=== PATIENT | female | born 1950 | race Two or more races ===

== ENCOUNTER 2017-08-18 17:08 | Emergency (ER) | payer MEDICARE, MEDICAID ==
[~2017-08-18] VITALS: Ht 162.6 cm; Wt 60.0 kg
[2017-08-18] MEDS ORDERED: IBUPROFEN 800MG TABLET PO ONE (23:00)
[2017-08-19 00:45] VITALS: BP 150/78
== END 2017-08-19 00:46 | disposition home or self-care (01) ==
LOC: ER 17:14
DX: S16.1XXA Strain of muscle, fascia and tendon at neck level, initial encounter (principal); R51 Headache; V78.1XXA Passenger on bus injured in noncollision transport accident in nontraffic accident, initial encounter; Y93.89 Activity, other specified; Y92.410 Unspecified street and highway as the place of occurrence of the external cause
CPT/HCPCS: 72040; 99284

== ENCOUNTER 2017-12-12 11:38 | Inpatient (IN) | payer MEDICARE, MEDICAID ==
[~2017-12-12] VITALS: Ht 162.6 cm; Wt 63.5 kg
[2017-12-12] MEDS ORDERED: MORPHINE SULFATE 4 MG/ML CPJ (NOT FOR IM USE) IV STA (12:28)
[2017-12-12] MEDS ORDERED: ONDANSETRON HCL 4MG/2ML INJ IV STA (12:28)
[2017-12-12] MEDS ORDERED: SODIUM CHLORIDE 0.9% 1,000 ML IV ONE (12:28)
[2017-12-12 13:28] LABS: BASOPHILS % 0.5 % (0.0-2.0); EOSINOPHILS % 0.5 % (0.0-5.0); HEMATOCRIT. 41.5 % (36.0-48.0); HEMOGLOBIN. 13.7 g/dL (12.0-16.0); LYMPHOCYTES % 9.5 % (20.0-50.0); MEAN CORPUSCULAR HEMOGLOBIN 26.9 pg (28.0-32.0); MEAN CORPUSCULAR VOLUME 81.3 fL (81.0-99.0); MEAN PLATELET VOLUME 8.6 fl (7.4-10.4); MONOCYTES % 4.2 % (2.0-8.0); NEUTROPHILS % 85.3 % (40.0-76.0); PLATELET 267 x1000/uL (130-400); RED BLOOD CELL COUNT 5.11 mill/uL (4.2-5.4); RED CELL DISTRIBUTION WIDTH 13.6 % (11.6-14.6)
[2017-12-12 13:30] LABS: CHLORIDE 101 mEq/L (98-107)
[2017-12-12] MEDS ORDERED: ASPIRIN 81MG TABLET PO ONE (15:15)
[2017-12-12 17:00] VITALS: BP 144/66
[2017-12-12 17:15] VITALS: BP 144/66
[2017-12-12] MEDS ORDERED: IPRATROPIUM/ALBUTEROL 0.5-3(2.5)MG/3ML NEB INH PRN (17:45)
[2017-12-12] MEDS ORDERED: ONDANSETRON HCL 4MG/2ML INJ IV PRN (17:45)
[2017-12-12] MEDS ORDERED: MORPHINE SULFATE 4 MG/ML CPJ (NOT FOR IM USE) IV PRN (17:45)
[2017-12-12] MEDS ORDERED: LORAZEPAM 0.5MG TABLET PO PRN (17:45)
[2017-12-12] MEDS ORDERED: DOCUSATE SODIUM 100MG CAPSULE PO PRN (17:45)
[2017-12-12] MEDS ORDERED: HYDROCODONE/ACETAMINOPHEN 5/325MG TABLET PO PRN (17:45)
[2017-12-12] MEDS ORDERED: CLONIDINE 0.1MG TABLET PO PRN (17:45)
[2017-12-12] MEDS ORDERED: ACETAMINOPHEN 325MG TABLET PO PRN (17:45)
[2017-12-12 19:06] LABS: PHOSPHORUS 3.5 mg/dL (2.5-4.9)
[2017-12-12 19:11] LABS: CREATINE KINASE MB FRACTION 3.8 ng/mL (0.5-3.6)
[2017-12-12 20:00] VITALS: BP 112/49
[2017-12-12] MEDS: PANTOPRAZOLE SODIUM 40 MG/VIAL IV SCH (21:30)
[2017-12-12] MEDS: DEXT 5%/0.45% NACL 1000ML 1,000 ML IV SCH (21:31)
[2017-12-12] MEDS: AMLODIPINE 5MG TABLET PO SCH (22:02)
[2017-12-13] VITALS: BP 116/46
[2017-12-13 04:00] VITALS: BP 108/59
[2017-12-13 06:29] LABS: BASOPHILS % 0.6 % (0.0-2.0); EOSINOPHILS % 2.3 % (0.0-5.0); HEMATOCRIT. 35.7 % (36.0-48.0); LYMPHOCYTES % 31.7 % (20.0-50.0); MEAN CORPUSCULAR HEMOGLOBIN 27.3 pg (28.0-32.0); MEAN CORPUSCULAR VOLUME 81.1 fL (81.0-99.0); MEAN PLATELET VOLUME 8.5 fl (7.4-10.4); MONOCYTES % 7.8 % (2.0-8.0); NEUTROPHILS % 57.6 % (40.0-76.0); PLATELET 234 x1000/uL (130-400); RED CELL DISTRIBUTION WIDTH 13.7 % (11.6-14.6)
[2017-12-13 06:49] LABS: CHLORIDE 105 mEq/L (98-107)
[2017-12-13] MEDS: DEXT 5%/0.45% NACL 1000ML 1,000 ML IV SCH (06:59)
[2017-12-13 07:11] LABS: CREATINE KINASE 129 IU/L (26-192)
[2017-12-13 08:00] VITALS: BP 102/51
[2017-12-13] MEDS: AMLODIPINE 5MG TABLET PO SCH (08:49)
[2017-12-13] MEDS ORDERED: ASPIRIN 81MG EC TABLET PO SCH (09:00)
[2017-12-13] MEDS: PANTOPRAZOLE SODIUM 40 MG/VIAL IV SCH (09:24)
[2017-12-13] MEDS ORDERED: ENOXAPARIN 40MG/0.4ML SYR SUBCUT SCH (11:00)
[2017-12-13 12:00] VITALS: BP 112/60
[2017-12-13 14:33] VITALS: BP 112/60
[2017-12-13] MEDS ORDERED: ATORVASTATIN CALCIUM 20MG TABLET PO SCH (21:00)
== END 2017-12-13 15:38 | disposition home or self-care (01) | DRG 206 ==
LOC: ER 11:38 → 7WST 15:16 → ENRESERV 16:02
PROVIDERS: ADMIT Internal Medicine; ATTEND Internal Medicine
DX: M94.0 Chondrocostal junction syndrome [Tietze] (principal); A08.4 Viral intestinal infection, unspecified; R10.13 Epigastric pain; I10 Essential (primary) hypertension; K21.9 Gastro-esophageal reflux disease without esophagitis; R35.0 Frequency of micturition; Z79.899 Other long term (current) drug therapy
CPT/HCPCS: 36415; 71045; 80048; 80053; 80061; 82550; 82553; 83036; 83690; 83735; 83880; 84100; 84443; 84484; 85025; 85610; 93005; 93306; 93970; 96361; 96374; 96375; 97161; 99285; C9113; J1650; J2270; J2405; J3490; J7030

== ENCOUNTER 2019-05-18 00:02 | Inpatient (IN) | payer OTHER, MEDICAID ==
[~2019-05-18] VITALS: Ht 162.6 cm; Wt 72.6 kg
[2019-05-18] MEDS ORDERED: ASPIRIN 81MG TABLET PO ONE (02:45)
[2019-05-18] MEDS ORDERED: NITROGLYCERIN OINT 1GM/INCH UDPKT TD ONE (02:45)
[2019-05-18 03:25] LABS: BASOPHILS % 0.9 % (0.0-2.0); EOSINOPHILS % 1.4 % (0.0-5.0); HEMATOCRIT. 38.9 % (36.0-48.0); HEMOGLOBIN. 13.1 g/dL (12.0-16.0); LYMPHOCYTES % 28.7 % (20.0-50.0); MEAN CORPUSCULAR HEMOGLOBIN 27.5 pg (28.0-32.0); MEAN CORPUSCULAR VOLUME 81.8 fL (81.0-99.0); MEAN PLATELET VOLUME 8.5 fl (7.4-10.4); MONOCYTES % 6.7 % (2.0-8.0); NEUTROPHILS % 62.3 % (40.0-76.0); PLATELET 247 x1000/uL (130-400); RED BLOOD CELL COUNT 4.76 mill/uL (4.2-5.4); RED CELL DISTRIBUTION WIDTH 13.7 % (11.6-14.6)
[2019-05-18 03:27] LABS: CHLORIDE 108 mEq/L (98-107)
[2019-05-18 08:25] VITALS: BP 141/75
[2019-05-18] MEDS ORDERED: ACETAMINOPHEN 325MG TABLET PO PRN (09:45)
[2019-05-18] MEDS ORDERED: IPRATROPIUM/ALBUTEROL 0.5-3(2.5)MG/3ML NEB HHN PRN (09:45)
[2019-05-18] MEDS: ENOXAPARIN 40MG/0.4ML SYR SUBCUT SCH (11:44)
[2019-05-18 12:00] VITALS: BP 104/55
[2019-05-18] MEDS: HYDROCODONE/ACETAMINOPHEN 5/325MG TABLET PO PRN ×2 (12:54→21:28)
[2019-05-18 16:00] VITALS: BP 104/55
[2019-05-18] MEDS: ASPIRIN 81MG EC TABLET PO SCH (19:14)
[2019-05-18 20:00] VITALS: BP 135/74
[2019-05-19] VITALS: BP 128/73
[2019-05-19 01:38] LABS: CLARITY URINE CLEAR (CLEAR); COLOR URINE YELLOW (YELLOW); KETONES URINE NEGATIVE (NEGATIVE); LEUKOCYTE ESTERASE URINE NEGATIVE (NEGATIVE); NITRITE URINE NEGATIVE (NEGATIVE); OCCULT BLOOD URINE NEGATIVE (NEGATIVE); PH URINE 5.5 (4.5-8.0); PROTEIN URINE NEGATIVE (NEGATIVE); SPECIFIC GRAVITY URINE 1.015 (1.005-1.030); UROBILINOGEN URINE 0.2 E.U./dL (0.2-1.0)
[2019-05-19 04:00] VITALS: BP 132/71
[2019-05-19 08:05] LABS: CHLORIDE 107 mEq/L (98-107)
[2019-05-19 08:12] LABS: BASOPHILS % 0.5 % (0.0-2.0); EOSINOPHILS % 3.1 % (0.0-5.0); HEMOGLOBIN. 12.6 g/dL (12.0-16.0); LYMPHOCYTES % 42.1 % (20.0-50.0); MEAN CORPUSCULAR HEMOGLOBIN 27.3 pg (28.0-32.0); MEAN CORPUSCULAR VOLUME 81.9 fL (81.0-99.0); MEAN PLATELET VOLUME 8.9 fl (7.4-10.4); MONOCYTES % 7.8 % (2.0-8.0); NEUTROPHILS % 46.5 % (40.0-76.0); PLATELET 244 x1000/uL (130-400); RED BLOOD CELL COUNT 4.63 mill/uL (4.2-5.4); RED CELL DISTRIBUTION WIDTH 13.9 % (11.6-14.6)
[2019-05-19] MEDS: ASPIRIN 81MG EC TABLET PO SCH (09:21)
[2019-05-19] MEDS: ENOXAPARIN 40MG/0.4ML SYR SUBCUT SCH (09:22)
[2019-05-19] MEDS ORDERED: REGADENOSON 0.4 MG/5 ML IV NR (11:45)
[2019-05-19 12:00] VITALS: BP 99/50
[2019-05-19] MEDS ORDERED: DIPHENHYDRAMINE 50MG/ML VIAL IV PRN (15:00)
[2019-05-19] MEDS ORDERED: ONDANSETRON HCL 4MG/2ML INJ IV PRN (15:00)
[2019-05-19] MEDS ORDERED: LORAZEPAM 2MG/ML CPJ IV PRN (15:00)
[2019-05-19] MEDS ORDERED: HYDRALAZINE 20MG/ML VIAL IV PRN (15:00)
[2019-05-19] MEDS ORDERED: REGADENOSON 0.4 MG/5 ML IV ONE (15:17)
[2019-05-19 17:00] VITALS: BP 137/81
[2019-05-19 20:00] VITALS: BP 115/67
[2019-05-19] MEDS ORDERED: FAMOTIDINE 20MG TABLET PO SCH (21:00)
[2019-05-19 21:14] LABS: D-DIMER 0.39 mg/L FEU (<0.50); PROTHROMBIN TIME 10.7 sec (9.6-11.0)
[2019-05-20] VITALS: BP 160/80
[2019-05-20] MEDS ORDERED: DEXT 5%/0.45% NACL 1000ML 1,000 ML IV SCH
[2019-05-20 04:00] VITALS: BP 131/65
[2019-05-20 05:59] LABS: CHLORIDE 107 mEq/L (98-107)
[2019-05-20 06:01] LABS: BASOPHILS % 0.6 % (0.0-2.0); EOSINOPHILS % 2.4 % (0.0-5.0); HEMATOCRIT. 37.6 % (36.0-48.0); HEMOGLOBIN. 12.4 g/dL (12.0-16.0); LYMPHOCYTES % 28.3 % (20.0-50.0); MEAN CORPUSCULAR HEMOGLOBIN 27.1 pg (28.0-32.0); MEAN PLATELET VOLUME 8.8 fl (7.4-10.4); NEUTROPHILS % 60.7 % (40.0-76.0); PLATELET 246 x1000/uL (130-400); RED BLOOD CELL COUNT 4.59 mill/uL (4.2-5.4); RED CELL DISTRIBUTION WIDTH 13.3 % (11.6-14.6)
[2019-05-20 06:45] LABS: VITAMIN B12 SERUM 642 pg/mL (211-911)
[2019-05-20 08:00] VITALS: BP 125/70
[2019-05-20] MEDS: ASPIRIN 81MG EC TABLET PO SCH (08:52)
[2019-05-20] MEDS: ENOXAPARIN 40MG/0.4ML SYR SUBCUT SCH (08:52)
[2019-05-20] MEDS ORDERED: ASPI-1158 MT (12:10)
[2019-05-20 15:55] VITALS: BP 130/74
== END 2019-05-20 18:30 | disposition home or self-care (01) | DRG 600 ==
LOC: ER 00:02 → 6WST 04:28 → EDBEDREQ 04:30 → EDBEDREQTM 04:30 → ENRESERV 07:31
PROVIDERS: ADMIT Internal Medicine; ATTEND Internal Medicine
DX: N64.4 Mastodynia (principal); I50.33 Acute on chronic diastolic (congestive) heart failure; R07.89 Other chest pain; F32.9 Major depressive disorder, single episode, unspecified; I11.0 Hypertensive heart disease with heart failure; E78.5 Hyperlipidemia, unspecified; E87.8 Other disorders of electrolyte and fluid balance, not elsewhere classified
CPT/HCPCS: 36415; 71045; 78452; 80048; 80053; 80061; 81003; 82607; 83036; 83735; 83880; 84443; 84484; 85025; 85379; 93005; 93017; 93306; 93970; 96372; 99285; A9500; J1650; J2785

== ENCOUNTER 2020-03-01 01:46 | Emergency (ER) | payer OTHER, MEDICAID ==
[~2020-03-01] VITALS: Ht 162.6 cm; Wt 73.0 kg
[~2020-03-01 01:46] MED LIST: ASPI-1158 MT
[2020-03-01] MEDS ORDERED: ASPIRIN 81MG TABLET PO ONE (04:15)
[2020-03-01 06:00] LABS: BASOPHILS % 0.5 % (0.0-2.0); EOSINOPHILS % 1.7 % (0.0-5.0); HEMATOCRIT. 39.7 % (36.0-48.0); HEMOGLOBIN. 13.3 g/dL (12.0-16.0); LYMPHOCYTES % 32.9 % (20.0-50.0); MEAN CORPUSCULAR VOLUME 80.6 fL (81.0-99.0); MEAN PLATELET VOLUME 8.2 fl (7.4-10.4); MONOCYTES % 7.7 % (2.0-8.0); NEUTROPHILS % 57.2 % (40.0-76.0); PLATELET 254 x1000/uL (130-400); RED BLOOD CELL COUNT 4.93 mill/uL (4.2-5.4); RED CELL DISTRIBUTION WIDTH 14.5 % (11.6-14.6)
[2020-03-01 06:11] LABS: CHLORIDE 106 mEq/L (98-107)
[2020-03-01] MEDS ORDERED: MAGNESIUM/ALUMINUM HYDROXIDE/SIMETHICONE 30ML UDC PO PRN (10:45)
[2020-03-01] MEDS ORDERED: DIPHENHYDRAMINE 50MG/ML VIAL IV PRN (10:45)
[2020-03-01] MEDS ORDERED: GUAIFENESIN 200MG/10ML SUGAR FREE UDC PO PRN (10:45)
[2020-03-01] MEDS ORDERED: HYDROCODONE/ACETAMINOPHEN 5/325MG TABLET PO PRN (10:45)
[2020-03-01] MEDS ORDERED: ACETAMINOPHEN 650MG SUPP PR PRN (10:45)
[2020-03-01] MEDS ORDERED: CLONIDINE 0.1MG TABLET PO PRN (10:45)
[2020-03-01] MEDS ORDERED: NA PHOS,M-B/NA PHOS,DI-BA ENEMA 118ML PR PRN (10:45)
[2020-03-01] MEDS ORDERED: LORAZEPAM 0.5MG TABLET PO PRN (10:45)
[2020-03-01] MEDS ORDERED: IPRATROPIUM/ALBUTEROL 0.5-3(2.5)MG/3ML NEB NEB PRN (10:45)
[2020-03-01] MEDS ORDERED: DOCUSATE SODIUM 100MG CAPSULE PO PRN (10:45)
[2020-03-01] MEDS ORDERED: MORPHINE SULFATE 2 MG/ML CPJ (NOT FOR IM USE) IV PRN (10:45)
[2020-03-01] MEDS ORDERED: ONDANSETRON HCL 4MG/2ML INJ IV PRN (10:45)
[2020-03-01] MEDS ORDERED: ACETAMINOPHEN 325MG TABLET PO PRN (10:45)
[2020-03-01] MEDS ORDERED: POTASSIUM CHLORIDE 20MEQ TABLET SR PO NR (11:00)
[2020-03-01] MEDS ORDERED: ENOXAPARIN 40MG/0.4ML SYR SUBCUT SCH (11:00)
[2020-03-01 12:10] VITALS: BP 136/73
[2020-03-01] MEDS ORDERED: FAMOTIDINE 20MG TABLET PO SCH (21:00)
[2020-03-02] MEDS ORDERED: ASPIRIN 81MG EC TABLET PO SCH (09:00)
== END 2020-03-01 12:16 | disposition left against medical advice (07) ==
LOC: ER 01:53 → SUPCPDRO 10:36 → ER 12:16 → CANBEDREQ 12:20
DX: R07.89 Other chest pain (principal); Z79.82 Long term (current) use of aspirin
CPT/HCPCS: 36415; 71045; 80053; 83880; 84484; 85025; 85379; 93005; 99285

== ENCOUNTER 2022-01-30 16:49 | Emergency (ER) | payer MEDICAID, OTHER ==
[~2022-01-30] VITALS: Ht 160 cm; Wt 75.0 kg
[~2022-01-30 16:49] MED LIST changes: -ASPI-1158 MT; +ASPI-1406 MT
[2022-01-30 16:54] VITALS: BP 164/90
== END 2022-01-30 18:31 | disposition left against medical advice (07) ==
LOC: ER 16:49
DX: Z53.21 Procedure and treatment not carried out due to patient leaving prior to being seen by health care provider (principal)